=== PATIENT | female | born 1980 | race Caucasian/White ===

== ENCOUNTER 2021-09-14 12:58 | Emergency (ER) | payer OTHER ==
[2021-09-14 13:40] LABS: EOSINOPHIL 1.2 % (0-5); HCT 45.7 % (37.0-47.0); HGB 15.6 g/dl (12.5-16.0); LYMPHOCYTE 26.8 % (15-48); MCH 31.3 pg (25.0-31.0); MCHC 34.1 g/dL (32.0-36.0); MCV 91.6 fL (78.0-100.0); MONOCYTE 4.6 % (0-12); MPV 9.9 fL (6.0-9.5); NRBC 0; PLT 266 K/uL (150-400); RBC 4.99 M/uL (4.20-5.40); WBC 8.9 K/uL (4.0-10.5)
[2021-09-14 14:00] LABS: BUN/CREAT RATIO (CALC) 17.1 RATIO; CREATININE 0.7 mg/dL (0.51-0.95); POTASSIUM 4.1 mmol/L (3.5-5.1)
== END 2021-09-14 18:25 | disposition other institution (70) ==
LOC: FER 12:58
PROVIDERS: Internal Medicine
DX: H54.61 Unqualified visual loss, right eye, normal vision left eye (principal); F17.210 Nicotine dependence, cigarettes, uncomplicated; Z88.5 Allergy status to narcotic agent; Z88.8 Allergy status to other drugs, medicaments and biological substances
CPT/HCPCS: 36415; 70450; 80048; 85025; Q9967